=== PATIENT | male | born 1965 | race Caucasian/White ===

== ENCOUNTER 2024-03-11 17:27 | Inpatient (IN) | payer OTHER ==
--- NOTE | 2024-03-11 18:15 | ED ---
Chest Pain HPI - General Chief Complaint: Chest Pain Stated Complaint: Chest pain Time Seen by Provider: 03/11/24 17:44 Source: patient, EMS Mode of arrival: EMS Limitations: no limitations - History of Present Illness Initial Comments: This patient is a 58-year-old man with history of previous stents (2014 at [facility]) who is transferred here from [facility] to have evaluation for suspected NSTEMI. The patient states that he had gone to the hospital there because around noon he had worsening of the pain that he has experienced for the past 3 weeks. He indicates is substernal area. He states that it feels like a squeezing and again around noon today got much worse. He states that it was worse for about 40 minutes and now is barely there. He rates it a 1 out of 10 currently. The studies at the other hospital revealed a troponin of 1.56. The EKG was interpreted as not acutely ischemic. The remainder of the patient's workup unremarkable there and he was transferred here. The patient smokes approximately 1 pack cigarettes per day. MD Complaint: chest pain -: week(s) Onset: during rest Pain Location: substernal Pain Radiation: none Severity: severe Quality: tightness, aching Consistency: other (Improved) Improves With: nothing Worsens With: nothing Treatments Prior to Arrival: aspirin, oxygen, other - Related Data Home Medications Medication Instructions Recorded Confirmed ALPRAZolam [Xanax] 1 mg PO TID PRN 03/11/24 03/11/24 ARIPiprazole [Abilify] 10 mg PO DAILY 03/11/24 03/11/24 Albuterol Sulfate [Ventolin HFA] 2 puff INHALATION RT-Q4H PRN 03/11/24 03/11/24 Baclofen 10 mg PO TID 03/11/24 03/11/24 Cetirizine HCl [Zyrtec] 10 mg PO DAILY 03/11/24 03/11/24 Doxycycline Hyclate 100 mg PO BID 03/11/24 03/11/24 Escitalopram [Lexapro] 20 mg PO DAILY 03/11/24 03/11/24 Folic Acid 1 mg PO DAILY 03/11/24 03/11/24 Montelukast [Singulair] 10 mg PO DAILY 03/11/24 03/11/24 Tamsulosin [Flomax] 0.4 mg PO DAILY 03/11/24 03/11/24 Tiotropium [place] [Spiriva 1 puff INHALATION RT-DAILY 03/11/24 03/11/24 Handihaler] predniSONE See Taper PO DIRECTED 03/11/24 03/11/24 Previous Rx's Medication Instructions Recorded Aspirin 81 mg PO DAILY #90 tab 03/13/24 Clopidogrel [Plavix] 75 mg PO DAILY #90 tab 03/13/24 Nitroglycerin Sl Tabs [Nitrostat] 0.4 mg SUBLINGUAL Q5M PRN #100 tab 03/13/24 Pantoprazole [Protonix] 40 mg PO AC-BRKFST 30 Days #30 tab 03/13/24 Rosuvastatin [Crestor] 10 mg PO Q48H #90 tablet 03/13/24 Allergies Allergy/AdvReac Type Severity Reaction Status Date / Time No Known Allergies Allergy Verified 03/11/24 18:04 Review of Systems ROS Statement: Those systems with pertinent positive or pertinent negative responses have been documented in the HPI. ROS Other: All systems not noted in ROS Statement are negative. Constitutional: Denies: fever, chills, weakness Respiratory: Denies: cough, dyspnea, hemoptysis Cardiovascular: Reports: chest pain. Denies: palpitations, orthopnea, edema, syncope Gastrointestinal: Denies: abdominal pain, nausea, vomiting, diarrhea Genitourinary: Denies: dysuria, hematuria Musculoskeletal: Denies: back pain Skin: Denies: rash Neurological: Denies: headache, weakness, numbness EKG Findings - EKG Comments: EKG Findings:: Minimal ST elevations inferiorly the machine is reading as early repolarization. - EKG Results: EKG: interpreted by ERMD, sinus rhythm, normal axis EKG shows: bradycardia (Rate 47 bpm) - CO, Pacemaker, Normal: Myocardial infarction: anterior CO (old age or indeterminate) Past Medical History Past Medical History: Chest Pain / Angina History of Any Multi-Drug Resistant Organisms: None Reported Past Surgical History: Heart Catheterization With Stent Past Psychological History: Anxiety Smoking Status: Current every day smoker Past Alcohol Use History: None Reported Past Drug Use History: Marijuana General Exam Limitations: no limitations General appearance: alert, in no apparent distress Head exam: Present: atraumatic, normocephalic Eye exam: Present: normal appearance. Absent: scleral icterus, conjunctival injection ENT exam: Present: normal oropharynx Neck exam: Present: normal inspection Respiratory exam: Present: normal lung sounds bilaterally. Absent: respiratory distress, wheezes, rales, rhonchi, stridor, accessory muscle use Cardiovascular Exam: Present: regular rate, normal rhythm, normal heart sounds. Absent: systolic murmur, diastolic murmur, rubs, gallop GI/Abdominal exam: Present: soft. Absent: distended, tenderness, guarding, rebo und, rigid, mass Extremities exam: Present: normal inspection, normal capillary refill. Absent: pedal edema, calf tenderness Back exam: Present: normal inspection. Absent: CVA tenderness (R), CVA tenderness (L) Neurological exam: Present: alert Skin exam: Present: warm, dry, intact, normal color. Absent: rash Course Vital Signs 03/11/24 03/11/24 03/11/24 17:40 19:30 21:00 Temperature 97.7 F 97.4 F L Pulse Rate 71 60 50 L Respiratory 18 18 17 Rate Blood Pressure 107/71 105/74 122/75 O2 Sat by Pulse 97 98 95 Oximetry 03/11/24 03/12/24 03/12/24 23:00 04:00 06:00 Temperature Pulse Rate 50 L 50 L 47 L Respiratory 19 17 18 Rate Blood Pressure 127/80 116/74 128/71 O2 Sat by Pulse 96 96 95 Oximetry 03/12/24 08:01 Temperature 97.5 F L Pulse Rate 75 Respiratory 18 Rate Blood Pressure 133/95 O2 Sat by Pulse 99 Oximetry - Reevaluation(s) Reevaluation #1: 03/11/24 18:18 Case discussed with solderer electronic, will repeat ECG and reevaluate patient's symptoms after medication. Reevaluation #2: 03/11/24 20:19 Cardiology updated with patient's recent labs and the fact that he is now symptom-free. Will continue to monitor and arrange admission. Chest Pain MDM - MDM Was pt. sent in by a medical professional or institution (, PA, SENIOR PRODUCT CONSULTANT, urgent care, hospital, or care home...) When possible be specific @ -Patient is sent as a transfer from the outside hospital Did you speak to anyone other than the patient for history (EMS, parent, family, police, friend...)? What history was obtained from this source @ -[No] Did you review nursing and triage notes (agree or disagree)? Why? @ -[I reviewed and agree with nursing and triage notes] Were old charts reviewed (outside hosp., previous admission, EMS record, old EKG, old radiological studies, urgent care reports/EKG's, care home records)? Report findings @ -[The transfer records were reviewed] Differential Diagnosis (chest pain, altered mental status, abdominal pain women, abdominal pain men, vaginal bleeding, weakness, fever, dyspnea, syncope, headache, dizziness, GI bleed, back pain, seizure, CVA, palpatations, mental health, musculoskeletal)? @ -[Differential Chest Pain: Stable Angina, Unstable Angina, STEMI, NSTEMI Aortic Dissection, Pneumothorax, Musculoskeletal, Esophageal Spasm GERD, Cholecystitis, Pancreatitis, Zoster, this is not meant to be an all-inclusive list. EKG interpreted by me (3pts min.). @ -[I interpreted as above] X-rays interpreted by me (1pt min.). @ -[None done] CT interpreted by me (1pt min.). @ -[None done] U/S interpreted by me (1pt. min.). @ -[None done] What testing was considered but not performed or refused? (CT, X-rays, U/S, labs)? Why? @ -[None] What meds were considered but not given or refused? Why? @ -[None] Did you discuss the management of the patient with other professionals (professionals i.e. , PA, SENIOR PRODUCT CONSULTANT, lab, RT, psych nurse, social worker psychiatric, family lawyer, teacher, life science technical officer, case managers)? Give summary @ -[Case was discussed with the admitting physician and also with cardiology on-call and cardiology was updated with lab and clinical course. Treatment recommendations are incorporated Was smoking cessation discussed for >3mins.? @ -Yes Was critical care preformed (if so, how long)? @ -[Yes, 30 minutes Were there social determinants of health that impacted care today? How? (Homelessness, low income, unemployed, alcoholism, drug addiction, transportation, low edu. Level, literacy, decrease access to med. care, assisted, rehab)? @ -[No] Was there de-escalation of care discussed even if they declined (Discuss DNR or withdrawal of care, Hospice)? DNR status @ -[No] What co-morbidities impacted this encounter? (DM, HTN, Smoking, COPD, CAD, Cancer, CVA, ARF, Chemo, Hep., AIDS, mental health diagnosis, sleep apnea, morbid obesity)? @ -[Previous coronary artery disease, smoking, hyperlipidemia Was patient admitted / discharged? Hospital course, mention meds given and route, prescriptions, significant lab abnormalities, going to OR and other pertinent info. @ -[Patient arrives here as transfer from the outside hospital. He is maintained on heparin drip. He has repeat labs showing that there is an elevation of troponin from his previous lab value. I discussed the results with admitting physician and with cardiology on-call and treatment recommendations incorporated. They plan to take the patient to [facility] in the a.m. as he currently symptom-free. Undiagnosed new problem with uncertain prognosis? @ -[No] Drug Therapy requiring intensive monitoring for toxicity (Heparin, Nitro, Insulin, Cardizem)? @ -[Heparin Were any procedures done? @ -[No] Diagnosis/symptom? @ -[Acute coronary syndrome Probable NSTEMI Acute, or Chronic, or Acute on Chronic? @ -[Acute Uncomplicated (without systemic symptoms) or Complicated (systemic symptoms)? @ -[Uncomplicated Side effects of treatment? @ -[No] Exacerbation, Progression, or Severe Exacerbation? @ -[No] Poses a threat to life or bodily function? How? (Chest pain, USA, CO, pneumonia, PE, COPD, DKA, ARF, appy, cholecystitis, CVA, Diverticulitis, Homicidal, Suicidal, threat to staff... and all critical care pts) @ -[Yes Disposition Clinical Impression: Chest pain, Acute non-ST elevation myocardial infarction (NSTEMI) Disposition: ADMITTED IP TO THIS HOSP Condition: Stable Is patient prescribed a controlled substance at d/c from ED?: No
[2024-03-11] MEDS: SODIUM CHLORIDE 0.9% 500 ML 500 ML IV STA (18:19)
[2024-03-11] MEDS: SODIUM CHLORIDE 0.9% 1,000 ML IV STA (18:22)
[2024-03-11 18:25] LABS: Basophils % (A) 0 %; Eosinophils # (A) 0.1 k/uL (0-0.7); Eosinophils % (A) 1 %; HCT 43.9 % (39.0-53.0); HGB 14.1 gm/dL (13.0-17.5); Lymphocytes % (A) 8 %; MCH 31.7 pg (25.0-35.0); Mean Platelet Volume 7.7; Monocytes # (A) 0.2 k/uL (0-1.0); Monocytes % (A) 1 %; Neutrophils # (A) 11.7 k/uL (1.3-7.7); Neutrophils % (A) 90 %; Platelet Count 229 k/uL (150-450); RBC 4.44 m/uL (4.30-5.90); RDW 13.5 % (11.5-15.5)
[2024-03-11] MEDS: NITROGLYCERIN SL TABS 0.4 MG TAB SUBLINGUAL STA (18:25)
[2024-03-11 18:38] LABS: ALT 18 U/L (4-49); AST 32 U/L (17-59); African American GFR (CKD) >90 (>60 ml/min/1.73 sqM); Albumin 3.5 g/dL (3.5-5.0); Alkaline Phosphatase 91 U/L (38-126); Anion Gap 6 mmol/L; Blood Urea Nitrogen 12 mg/dL (9-20); Calcium 8.8 mg/dL (8.4-10.2); Carbon Dioxide 18 mmol/L (22-30); Chloride 112 mmol/L (98-107); Glucose 114 mg/dL (74-99); Magnesium 1.9 mg/dL (1.6-2.3); Non-African American GFR(CKD) >90 (>60 ml/min/1.73 sqM); Potassium 4.4 mmol/L (3.5-5.1); Sodium 136 mmol/L (137-145); Total Bilirubin 0.4 mg/dL (0.2-1.3); Total Protein 6.7 g/dL (6.3-8.2)
[2024-03-11 18:51] LABS: Prothrombin Time 11.3 sec (10.0-12.5)
[2024-03-11] MEDS: HEPARIN SOD,PORK IN 0.45% NACL 25,000 UNIT in 0.45% NACL 1 250ML.BAG IV SCH (18:59)
[2024-03-11 19:01] LABS: Partial Thromboplastin Time 176.9 sec (22.0-30.0)
[2024-03-11] MEDS ORDERED: NITROGLYCERIN SL TABS 0.4 MG TAB SUBLINGUAL PRN (20:15)
[2024-03-11] MEDS ORDERED: ALBUTEROL HFA INHALER INHALATION PRN (20:18)
[2024-03-11] MEDS: CLOPIDOGREL 75 MG TAB PO STA (23:50)
--- NOTE | 2024-03-11 23:58 | P.HPIM ---
History of Present Illness H&P Date: 03/11/24 Chief Complaint: Chest pain 58-year-old male with coronary artery disease Patient was transferred to our facility from [facility] for NSTEMI, he presented there having couple episodes of chest pain started this morning when he was getting his 4 wheelers ready suddenly started experiencing central chest pain described as squeezing in nature 10 out of 10 in severity associated with feeling nauseous vomited once with shortness of breath denies any profuse sweating denies any dizziness lightheadedness or palpitations he took some Xanax as he thought he might be having some anxiety first episode lasted for about 10 minutes resolved but then he had another episode that lasted over an hour for which she decided to go to the hospital for evaluation patient does recall history of coronary artery disease with stents back in 2013 or 2014 denies any recent upper respiratory infection symptoms denies any fevers chills coughing denies any recent travel hospital stay or history of blood clots At time of my evaluation patient was laying down in bed comfortably sleeping denies any active chest pain currently on heparin drip Otherwise denies any fevers chills denies any upper respiratory infection symptoms denies any abdominal pain denies any changes in bowel or urinary habit denies any GI bleeding Patient admits to tobacco smoking denies any illicit drugs or heavy alcohol review of systems Pertinent positives as noted in HPI. All other systems were reviewed and are negative on exam Constitutional: No acute distress, conversant, pleasant Eyes: Anicteric sclerae, moist conjunctiva, Pupils equal round reactive to light ENMT: NC/AT Oropharynx clear, no erythema, or exudates Neck: Supple, no masses, or JVD No carotid bruits No thyromegaly Lungs: Clear to auscultation Clear to percussion Normal respiratory effort, no accessory muscle use Cardiovascular: Heart regular in rate and rhythm, No murmurs, gallops, or rubs No peripheral edema Abdominal: Soft Nontender, no guarding, rebound or rigidity Abdomen moving with respiration Normoactive bowel sounds Extremities: No digital cyanosis No clubbing Pedal pulses intact and symmetrical Radial pulses intact and symmetrical No calf tenderness Psychiatric: Alert and oriented to person, place and time Appropriate affect fair judgement Neuro Muscles Strength 5/5 in all 4 extremities Sensation to light touch grossly present throughout Cranial nerves II-XII grossly intact Past Medical History Past Medical History: Chest Pain / Angina History of Any Multi-Drug Resistant Organisms: None Reported Past Surgical History: Heart Catheterization With Stent Past Psychological History: Anxiety Smoking Status: Current every day smoker Past Alcohol Use History: None Reported Past Drug Use History: Marijuana Medications and Allergies Home Medications Medication Instructions Recorded Confirmed Type ALPRAZolam [Xanax] 1 mg PO TID PRN 03/11/24 03/11/24 History ARIPiprazole [Abilify] 10 mg PO DAILY 03/11/24 03/11/24 History Albuterol Sulfate [Ventolin HFA] 2 puff INHALATION RT-Q4H PRN 03/11/24 03/11/24 History Baclofen 10 mg PO TID 03/11/24 03/11/24 History Cetirizine HCl [Zyrtec] 10 mg PO DAILY 03/11/24 03/11/24 History Doxycycline Hyclate 100 mg PO BID 03/11/24 03/11/24 History Escitalopram [Lexapro] 20 mg PO DAILY 03/11/24 03/11/24 History Folic Acid 1 mg PO DAILY 03/11/24 03/11/24 History Montelukast [Singulair] 10 mg PO DAILY 03/11/24 03/11/24 History Tamsulosin [Flomax] 0.4 mg PO DAILY 03/11/24 03/11/24 History Tiotropium [place] [Spiriva] 1 puff INHALATION RT-DAILY 03/11/24 03/11/24 History predniSONE See Taper PO DIRECTED 03/11/24 03/11/24 History Allergies Allergy/AdvReac Type Severity Reaction Status Date / Time No Known Allergies Allergy Verified 03/11/24 18:04 Physical Exam Vitals: Vital Signs Temp Pulse Resp BP Pulse Ox 03/11/24 19:30 97.4 F L 60 18 105/74 98 03/11/24 17:40 97.7 F 71 18 107/71 97 Intake and Output 03/11/24 03/11/24 03/11/24 06:59 14:59 22:59 Intake Total 0.29 Balance 0.29 Intake: Intake, IV Titration 0.29 Amount Heparin Sod,Pork in 0.45% 0.29 NaCl 25,000 unit In 0.45 % NaCl 1 250ml.bag @ 12 UNITS/KG/HR 8.709 mls/hr IV .Q24H MAHAMED Rx#: [id number] Other: Weight 72.575 kg Results CBC & Chem 7: 03/11/24 18:11 03/11/24 18:11 Labs: Abnormal Lab Results - Last 24 Hours (Table) 03/11/24 03/11/24 03/11/24 Range/Units 18:11 18:11 18:11 WBC 13.0 H (3.8-10.6) k/uL Neutrophils # 11.7 H (1.3-7.7) k/uL APTT 176.9 H* (22.0-30.0) sec Sodium 136 L (137-145) mmol/L Chloride 112 H (98-107) mmol/L Carbon Dioxide 18 L (22-30) mmol/L Glucose 114 H (74-99) mg/dL Troponin I (0.000-0.034) ng/mL 03/11/24 03/11/24 Range/Units 18:11 19:56 WBC (3.8-10.6) k/uL Neutrophils # (1.3-7.7) k/uL APTT 32.3 H (22.0-30.0) sec Sodium (137-145) mmol/L Chloride (98-107) mmol/L Carbon Dioxide (22-30) mmol/L Glucose (74-99) mg/dL Troponin I 2.450 H* (0.000-0.034) ng/mL Assessment and Plan Assessment: 58-year-old male with coronary artery disease coming in for sudden onset chest pain multiple episodes he was evaluated at [facility] found to have elevated troponins was transferred to our facility for further care I discussed case with ED doctor and accepted the admission for NSTEMI with anticipated length of stay more than 2 midnights NSTEMI Patient continues to be on heparin drip per ACS protocol, dosing by pharmacy Continue with aspirin 325 mg p.o. daily Loading dose of Plavix 300 mg p.o. then continue with 75 mg p.o. daily Cardiac monitoring EKG showed ST changes in precordial leads suggestive of early repolarization Troponins elevated 2.4 continue to trend Continue with statin Cardiology consult White count elevated 13 no evidence of acute infectious process most likely reactive secondary to above Renal function unremarkable sodium 136 potassium 4.4 BUN 12 creatinine 0.8 Hemoglobin unremarkable 14 Full code DVT prophylaxis on heparin drip per ACS protocol GI prophylaxis Protonix 40 mg p.o. daily
[2024-03-12] MEDS ORDERED: HEPARIN SODIUM,PORCINE (1 ML) 2,500 UNIT in SODIUM CHLORIDE 0.9% 250 ML IRRIGATION PRN (07:00)
[2024-03-12] MEDS ORDERED: HEPARIN SODIUM,PORCINE 10,000 UNIT in SODIUM CHLORIDE 0.9% 1,000 ML IRRIGATION PRN (07:00)
[2024-03-12] MEDS ORDERED: ALPRAZolam 0.25 MG TAB PO PRN (08:19)
[2024-03-12] MEDS ORDERED: ASPIRIN 325 MG TAB PO STA (08:19)
[2024-03-12] MEDS ORDERED: ALPRAZolam 0.5 MG TAB PO PRN (08:19)
--- NOTE | 2024-03-12 08:19 | P.CRDCN ---
History of Present Illness Consult date: 03/12/24 Reason for Consult (text): NSTEMI History of present illness: History of present illness: This is a 58-year-old male with past medical history of coronary artery disease with previous stents placed in 2013 in [place]. Patient was transferred from [facility] for suspected non-ST elevated myocardial infarction. Patient has had chest pain ongoing for the past 3 weeks in the substernal area, squeezing quality. Troponin at [facility] was 1.56. He denies fever, chills. No shortness of breath. He has had one episode with nausea. Patient received NTG SL but at that time very inimal pain and not sure if this helped. He is a smoker of 1 pack/day. In 2013, patient had CO poisoning and found to have abnormal EKG and had stress test and then cath with stents. He did not experience chest pain at the time of his previous stents. Patient has been started on a heparin drip, aspirin, Plavix and is seen today in the emergency center waiting for bed on the cardiac stepdown unit. EKG sinus rhythm with abnormal ST or possible early repolarization WBC 13, hemoglobin 14.1. Sodium 136, potassium 4.4, chloride 112, CO2 18, BUN 12 and creatinine 0.81. Troponins 2.45, 3.21, 3.35. Home cardiac medications: none Review Of Systems: At the time of my exam: CONSTITUTIONAL: Denies fever or chills. HEENT: Denies blurred vision, vision changes, or eye pain. Denies hemoptysis CARDIOVASCULAR: Denies chest pain. Denies orthopnea. Denies PND. Denies palpitations RESPIRATORY: Denies shortness of breath. GASTROINTESTINAL: Denies abdominal pain. Denies nausea or vomiting. HEMATOLOGIC: Denies bleeding disorders. GENITOURINARY: Denies any blood in urine. SKIN: Denies pruitis. Denies rash. Physical examination: Gen: This is a 58-year-old male in no acute distress VS: reviewed, blood pressure 128/71, heart rate 47, pulse ox 95% on room air. HEENT: Head is atraumatic, normocephalic. Pupils equal, round. Sclerae is anicteric. NECK: Supple. No JVD. LUNGS: Clear to auscultation. No wheezes or rhonchi. No intercostal retractions . HEART: Regular rate and rhythm. No murmur. ABDOMEN: Soft No tenderness. EXTREMITIES: No pedal edema. No calf tenderness. NEUROLOGICAL: Patient is awake, alert and oriented x3. Assessment: Non-ST elevated myocardial infarction History of coronary artery disease with previous stents, details unknown Tobacco use and dependence Plan: Continue current cardiac medications: Aspirin changed to 81 mg daily, atorvastatin 40 mg daily, Plavix 75 mg daily Continue heparin drip Patient is not on beta-mariza due to bradycardia Obtain 2-D echocardiogram and Doppler study to assess cardiac structure and function Obtain previous cardiac records from [facility] Smoking cessation discussed with the patient and referred to the [place] Quitline Patient will be scheduled for cardiac catheterization today with Dr. Saunders Further recommendations to follow based upon clinical course Thank you kindly for this consultation. Nurse practitioner note has been reviewed, I agree with documented findings and plan of care. Patient was seen and examined. Past Medical History Past Medical History: Chest Pain / Angina History of Any Multi-Drug Resistant Organisms: None Reported Past Surgical History: Heart Catheterization With Stent Past Psychological History: Anxiety Smoking Status: Current every day smoker Past Alcohol Use History: None Reported Past Drug Use History: Marijuana Medications and Allergies Home Medications Medication Instructions Recorded Confirmed Type ALPRAZolam [Xanax] 1 mg PO TID PRN 03/11/24 03/11/24 History ARIPiprazole [Abilify] 10 mg PO DAILY 03/11/24 03/11/24 History Albuterol Sulfate [Ventolin HFA] 2 puff INHALATION RT-Q4H PRN 03/11/24 03/11/24 History Baclofen 10 mg PO TID 03/11/24 03/11/24 History Cetirizine HCl [Zyrtec] 10 mg PO DAILY 03/11/24 03/11/24 History Doxycycline Hyclate 100 mg PO BID 03/11/24 03/11/24 History Escitalopram [Lexapro] 20 mg PO DAILY 03/11/24 03/11/24 History Folic Acid 1 mg PO DAILY 03/11/24 03/11/24 History Montelukast [Singulair] 10 mg PO DAILY 03/11/24 03/11/24 History Tamsulosin [Flomax] 0.4 mg PO DAILY 03/11/24 03/11/24 History Tiotropium [place] [Spiriva] 1 puff INHALATION RT-DAILY 03/11/24 03/11/24 History predniSONE See Taper PO DIRECTED 03/11/24 03/11/24 History Allergies Allergy/AdvReac Type Severity Reaction Status Date / Time No Known Allergies Allergy Verified 03/11/24 18:04 Physical Exam Vitals: Vital Signs Temp Pulse Resp BP Pulse Ox 03/12/24 06:00 47 L 18 128/71 95 03/12/24 04:00 50 L 17 116/74 96 03/11/24 23:00 50 L 19 127/80 96 03/11/24 21:00 50 L 17 122/75 95 03/11/24 19:30 97.4 F L 60 18 105/74 98 03/11/24 17:40 97.7 F 71 18 107/71 97 Intake and Output 03/11/24 03/12/24 03/12/24 22:59 06:59 14:59 Intake Total 0.29 Balance 0.29 Intake: Intake, IV Titration 0.29 Amount Heparin Sod,Pork in 0.45% 0.29 NaCl 25,000 unit In 0.45 % NaCl 1 250ml.bag @ 12 UNITS/KG/HR 8.709 mls/hr IV .Q24H [facility] Rx#: [id number] Other: Weight 72.575 kg Results 03/11/24 18:11 03/11/24 18:11 Cardiac Enzymes 03/11/24 03/11/24 03/11/24 Range/Units 18:11 18:11 21:06 AST 32 (17-59) U/L Troponin I 2.450 H* 3.210 H* (0.000-0.034) ng/mL 03/11/24 Range/Units 23:39 AST (17-59) U/L Troponin I 3.350 H* (0.000-0.034) ng/mL Coagulation 03/11/24 03/11/24 Range/Units 18:11 19:56 PT 11.3 (10.0-12.5) sec APTT 176.9 H* 32.3 H (22.0-30.0) sec CBC 03/11/24 Range/Units 18:11 WBC 13.0 H (3.8-10.6) k/uL RBC 4.44 (4.30-5.90) m/uL Hgb 14.1 (13.0-17.5) gm/dL Hct 43.9 (39.0-53.0) % Plt Count 229 (150-450) k/uL Comprehensive Metabolic Panel 03/11/24 Range/Units 18:11 Sodium 136 L (137-145) mmol/L Potassium 4.4 (3.5-5.1) mmol/L Chloride 112 H (98-107) mmol/L Carbon Dioxide 18 L (22-30) mmol/L BUN 12 (9-20) mg/dL Creatinine 0.81 (0.66-1.25) mg/dL Glucose 114 H (74-99) mg/dL Calcium 8.8 (8.4-10.2) mg/dL AST 32 (17-59) U/L ALT 18 (4-49) U/L Alkaline Phosphatase 91 (38-126) U/L Total Protein 6.7 (6.3-8.2) g/dL Albumin 3.5 (3.5-5.0) g/dL Current Medications Generic Name Dose Route Start Last Admin Trade Name Freq PRN Reason Stop Dose Admin Albuterol Sulfate 2 puff 03/11/24 20:18 Albuterol Hfa Inhaler INHALATION RT-Q4H PRN Shortness Of Breath Alprazolam 1 mg 03/11/24 23:59 Alprazolam 1 Mg Tab PO TID PRN Anxiety Aspirin 325 mg 03/12/24 09:00 Aspirin 325 Mg Tab PO DAILY [facility] Atorvastatin Calcium 40 mg 03/12/24 09:00 Atorvastatin 40 Mg Tab PO DAILY [facility] Clopidogrel Bisulfate 75 mg 03/12/24 09:00 Clopidogrel 75 Mg Tab PO DAILY [facility] Escitalopram Oxalate 20 mg 03/12/24 09:00 Escitalopram 20 Mg Tab PO DAILY [facility] Heparin Sodium (Porcine) 0 unit 03/11/24 22:40 Heparin Sodium 1,000 Un/Ml (10ml Vl) IV PER PROTOCOL PRN Low PTT Protocol Heparin Sodium/Sodium Chloride 250 mls @ 8.709 mls/hr 03/11/24 18:00 03/11/24 22:42 25,000 unit/ Sodium Chloride IV 12 units/kg/hr .Q24H [facility] 8.709 mls/hr Titration Protocol 12 UNITS/KG/HR Sodium Chloride 1,000 mls @ 75 mls/hr 03/11/24 18:10 03/11/24 18:22 Saline 0.9% IV 03/12/24 07:29 75 mls/hr .[id number] STA Administration Montelukast Sodium 10 mg 03/12/24 09:00 Montelukast 10 Mg Tab PO DAILY [facility] Nitroglycerin 0.4 mg 03/11/24 20:15 Nitroglycerin Sl Tabs 0.4 Mg Tab SUBLINGUAL Q5M PRN Chest Pain Non-Formulary Medication 1 puff 03/12/24 08:00 Tiotropium [place] [Spiriva Handihaler] INHALATION RT-DAILY [facility] Pantoprazole Sodium 40 mg 03/12/24 07:30 Pantoprazole 40 Mg Tablet PO AC-BRKFST [facility] Tamsulosin HCl 0.4 mg 03/12/24 09:00 Tamsulosin 0.4 Mg Cap.Er.24h PO DAILY [facility] Intake and Output 03/11/24 03/12/24 03/12/24 22:59 06:59 14:59 Intake Total 0.29 Balance 0.29 Intake: Intake, IV Titration 0.29 Amount Heparin Sod,Pork in 0.45% 0.29 NaCl 25,000 unit In 0.45 % NaCl 1 250ml.bag @ 12 UNITS/KG/HR 8.709 mls/hr IV .Q24H [facility] Rx#: [id number] Other: Weight 72.575 kg 03/11/24 18:11 03/11/24 18:11
[2024-03-12] MEDS: ATORVASTATIN 40 MG TAB PO SCH (08:21)
[2024-03-12] MEDS: TAMSULOSIN 0.4 MG CAP.ER.24H PO SCH (08:21)
[2024-03-12] MEDS: MONTELUKAST 10 MG TAB PO SCH (08:21)
[2024-03-12] MEDS: CLOPIDOGREL 75 MG TAB PO SCH (08:21)
[2024-03-12] MEDS: ASPIRIN 81 MG PO SCH (08:22)
[2024-03-12] MEDS: ESCITALOPRAM 20 MG TAB PO SCH (08:22)
[2024-03-12] MEDS: PANTOPRAZOLE 40 MG TABLET PO SCH (08:25)
[2024-03-12] MEDS: NON FORMULARY DRUG (Tiotropium Bromide [Spiriva Handihaler] 18 MCG Cap.W.Dev) INHALATION SCH (08:26)
[2024-03-12] MEDS: ALPRAZolam 1 MG TAB PO PRN (08:29)
[2024-03-12] MEDS: ASPIRIN 81 MG PO STA (08:29)
[2024-03-12] MEDS: ATORVASTATIN 80 MG TAB PO STA (08:30)
[2024-03-12] MEDS ORDERED: ASPIRIN 325 MG TAB PO SCH (09:00)
[2024-03-12] MEDS: HEPARIN SODIUM 1,000 UN/ML (10ML VL) IV PRN (10:34)
[2024-03-12] MEDS ORDERED: fentaNYL (PF) 50 MCG/ML 2 ML AMP ONE (10:36)
[2024-03-12] MEDS ORDERED: LIDOCAINE 1% INJ 10MG/ML (20 ML MDV) ONE (10:36)
[2024-03-12] MEDS ORDERED: VERAPAMIL 2.5 MG/ML 2 ML AMP ONE (10:36)
[2024-03-12] MEDS ORDERED: HEPARIN SODIUM 1,000 UN/ML (10ML VL) ONE (10:36)
[2024-03-12] MEDS: SODIUM CHLORIDE 0.9% 1,000 ML IV ONE (10:50)
[2024-03-12] MEDS: MIDAZOLAM 2 MG/2 ML VIAL IVP ONE (11:05)
[2024-03-12] MEDS: fentaNYL (PF) 50 MCG/1 ML VIAL IVP ONE (11:06)
[2024-03-12] MEDS: LIDOCAINE 1% INJ 10MG/ML (20 ML MDV) SQ ONE (11:07)
[2024-03-12] MEDS: VERAPAMIL SYRINGE (5 MG/10 ML) INTRAARTER ONE (11:08)
[2024-03-12] MEDS: HEPARIN SODIUM 1,000 UN/ML (10ML VL) IVP ONE ×2 (11:12→11:13)
[2024-03-12] MEDS ORDERED: CLOPIDOGREL 75 MG TAB ONE (11:16)
[2024-03-12] MEDS: CLOPIDOGREL 75 MG TAB PO ONE (11:23)
[2024-03-12] MEDS: NITROGLYCERIN 1000MCG/10ML SYRINGE INTRACORON ONE (11:26)
[2024-03-12] MEDS: IOPAMIDOL-370 100ML BTL INJ ONE ×2 (11:33→11:39)
--- NOTE | 2024-03-12 11:44 | P.PRCINT ---
Percutaneous Coronary Int. - Percutaneous Coronary Intervention Percutaneous Coronary Intervention: PROCEDURES PERFORMED: Left heart catheterization, bilateral coronary angiography, ultrasound guided arterial access, PCI proximal diagonal 1 with a 2.25 x 12mm Xience RENARD, post dilated with a 2.25mm NC INDICATION: NSTEMI CONSENT:I have discussed the risks, benefits and alternative therapies for the above-mentioned procedure and for both sedation/analgesia as well as necessary blood product administration, if indicated, as they pertain to this patient. The patient has indicated understanding and acceptance of the risks and procedures discussed. PROCEDURE: After the risks, benefits and alternatives of the above mentioned procedure explained in detail with the patient, informed consent was obtained. Patient was taken to the catheterization lab and prepped and draped in usual fashion. Ultrasound guidance was used to assess for arterial access. 1% lidocaine was used to anesthetize the right radial artery. A 6-Mozambican sheath was placed in the right radial artery using modified Seldinger technique and ult rasound guidance. Left coronary angiography was performed with a 5-Mozambican JL 3.5 catheter and right coronary angiography was performed with a 5-Mozambican FR5 catheter in various views. A 6-Mozambican AR2 catheter was inserted into the left ventricle and pressure measurements were obtained. The right radial sheath was removed and a TR band was placed with hemostasis achieved. The patient tolerated the procedure well. Patient was transported back to the post catheterization holding area in stable condition. Conscious Sedation: Patient was monitored under the direct supervision of myself for conscious sedation using Versed and fentanyl for a total duration of 27 minutes HEMODYNAMICS: Ao: 152/75 LV: 145/5, LVEDP 18 SELECTIVE CORONARY ARTERIOGRAPHY: LEFT MAIN: The left main is a large caliber vessel which bifurcates into the LAD and circumflex. There is mild 10% distal left main stenosis. LEFT ANTERIOR DESCENDING CORONARY ARTERY: LAD is a large caliber vessel which wraps around to the apex. There are diffuse mild luminal irregularities including proximal LAD 30%, mid LAD 30% stenosis. Diagonal 1 is small to moderate caliber with a proximal 99% stenosis. LEFT CIRCUMFLEX CORONARY ARTERY: Left circumflex is a moderate caliber vessel with 20-30% stenosis. there is a stent which is patent. RIGHT CORONARY ARTERY: The right coronary artery is a large caliber vessel which gives off a PDA and PLV branch and is the dominant vessel. There is a mid 50% RCA stenosis. FINAL IMPRESSION: 1. CAD as described above with 30% LAD stenosis, 99% proximal diagonal 1 stenosis, mid RCA 50% stenosis 2. Status post PCI proximal diagonal 1 was 2.25 x 12 mm Xience RENARD 3. Mildly elevated left sided filling pressures PLAN: 1. Aggressive risk factor modification per most recent ACC/AHA guidelines. 2. continue dual antiplatelets with aspirin and Plavix for 12 months. 3. No beta blockers given bradycardia 4. Patient unwilling to take statin despite numerous explanations of her reason for statin 5. Discussed tobacco cessation in detail. Patient unwilling. Gave the patient referral to the [place] quit line.
[2024-03-12] MEDS ORDERED: RX INFO: IV CONTRAST WAS GIVEN 1 EACH MISC MISCELLANE PRN (11:47)
[2024-03-12] MEDS ORDERED: MAG HYDROX/AL HYDROX/SIMETH 30 ML CUP PO PRN (11:47)
[2024-03-12] MEDS ORDERED: ZOLPIDEM 5 MG TAB PO PRN (11:47)
[2024-03-12] MEDS ORDERED: ATROPINE SULFATE 0.1 MG/ML 10ML SYRINGE IV PRN (11:47)
[2024-03-12 12:54] LABS: Chol/HDL Ratio 3.88 Ratio; LDL Cholesterol,Calculated 100.3 mg/dL (0.0-131.0)
--- NOTE | 2024-03-12 13:49 | P.PN ---
Subjective Progress Note Date: 03/12/24 Hospital course: Patient is a 58-year-old male with a past medical history of CAD with stent and COPD with continued nicotine dependence. He was transferred to our facility overnight on 03/11/2024 from [facility] for NSTEMI. Patient initially presented to their facility with squeezing central chest pain. Patient was given aspirin and workup there revealed elevated troponin documented at 1.56. Patient was started on heparin infusion for treatment of NSTEMI and transferred to our emergency department. Vital signs upon arrival to our facility show b lood pressure 107/71, heart rate 71, respiratory rate 18, temp 97.7 F, and SpO2 of 97% on room air. EKG upon arrival showing sinus bradycardia at [address] elevation in leads II, III, and aVF and T wave inversion in aVL. ER physician discussed EKG findings with on-call slide fasteners inspector. Heparin infusion was continued and patient was given Plavix and sublingual nitro resulting in resolution of chest pain/squeezing sensation. Repeat EKG was completed again showing sinus bradycardia with no noted ST elevation and T wave inversion in aVL. Political Science Research Assistant was again updated by ED physician on repeat labs and resolution of chest pain and new EKG findings after administration of medication recommending continuation of monitoring. Repeat labs at her facility were also completed. CBC showing leukocytosis with WBC count of 13.0. BMP showing sodium 136, chloride 112, bicarb 18, and anion gap of 6. Troponin 2.450. Patient admitted under our services with consultation to cardiology. Troponins trended resulting at 2.450, 3.210, and 3.350. Physical exam: Patient seen and fully evaluated at bedside this morning. He reports continued resolution of previous chest pain/squeezing sensation. He remains on heparin infusion. He denies having any headache, lightheadedness, dizziness, palpitations, shortness of breath, Vital signs reviewed and stable. General: Nontoxic, no distress and appears stated age. Derm: Skin warm and dry, normal coloration for ethnicity. Head: Atraumatic, normocephalic and symmetric. Eyes: EOMs intact, no lid lag, and anicteric sclera Mouth: no lip lesions, mucus membranes moist Cardiovascular: regular rate and rhythm with normal S1S2, no murmur, positive posterior tibial pulses bilaterally, and cap refill < 2 seconds. Lungs: Respirations even, regular, and unlabored on room air. Lungs CTA bilaterally, no rhonchi, no rales, no wheezing, and no accessory muscle usage. Abdominal: soft, nontender to palpation, no guarding, no appreciable organomegaly Ext: ROM intact. No gross muscle atrophy, no edema, no contractures Neuro: Speech clear, face symmetrical and CN II-XII grossly intact with no noted focal neuro deficits Psych: Alert and oriented to person, place, time, and situation. Appropriate and pleasant affect. Assessment and Plan of Care: NSTEMI History of CAD with previous stenting COPD, not in acute exacerbation Nicotine dependence -Cardiology evaluated and planning to take patient for cardiac cath later today -Continue heparin infusion for treatment of NSTEMI, currently PTT subtherapeutic at 33.1. Continue to monitor PTT every 6 hours for goal therapeutic range of 44 to 79 ms. -Telemetry monitoring -NPO pending completion of cardiac cath and then may advance to cardiac diet -Continue cardiac medication regimen with aspirin 81 mg daily and atorvastatin 40 mg daily, -Lipid profile with a.m. labs. -Echocardiogram -Patient was counseled on smoking cessation and offered a nicotine patch but declined at this time. -Continue Spiriva, Singulair, and as needed Ventolin inhaler for shortness of breath and/or wheezing. BPH Continue Flomax 0.4 mg daily. Data and imaging reviewed: Troponins trended resulting at 2.450, 3.210, and 3.350. Vital signs reviewed and stable. Blood pressure 133/95, heart rate 75, respiratory rate 18, temp 97.5 F, and SpO2 of 99% on room air. PTT subtherapeutic at 33.1 increased heparin infusion from 12 units/kg/h up to 15 units/kg/h and attempts to obtain goal therapeutic range of 44 to 79 ms. CODE STATUS: Full code DVT prophylaxis: Heparin infusion Anticipated discharge date: Clinical course to determine Anticipated discharge place: Home Patient was seen independently by Nurse Pracitioner. This document was prepared using [employer] dictation software. Please allow for errors in transfer agent, while rare they do occur. I reviewed the documentation as provided by the KIM above, who is the original author of this note. I agree with the documented assessment and plan, with the following changes: none Objective - Vital Signs Vital signs: Vital Signs Temp 97.5 F L 03/12/24 08:01 Pulse 75 03/12/24 08:01 Resp 18 03/12/24 08:01 BP 133/95 03/12/24 08:01 Pulse Ox 99 03/12/24 08:01 FiO2 Intake & Output 03/11/24 03/12/24 03/12/24 18:59 06:59 18:59 Intake Total 0.29 Balance 0.29 Weight 72.575 kg Intake: Intake, IV Titration 0.29 Amount Heparin Sod,Pork in 0.45% 0.29 NaCl 25,000 unit In 0.45 % NaCl 1 250ml.bag @ 12 UNITS/KG/HR 8.709 mls/hr IV .Q24H [facility] Rx#: [id number] - Labs CBC & Chem 7: 03/13/24 06:19 03/13/24 06:19 Labs: Abnormal Lab Results - Last 24 Hours (Table) 03/11/24 03/11/24 03/11/24 Range/Units 18:11 18:11 18:11 WBC 13.0 H (3.8-10.6) k/uL Neutrophils # 11.7 H (1.3-7.7) k/uL APTT 176.9 H* (22.0-30.0) sec Sodium 136 L (137-145) mmol/L Chloride 112 H (98-107) mmol/L Carbon Dioxide 18 L (22-30) mmol/L Glucose 114 H (74-99) mg/dL Troponin I (0.000-0.034) ng/mL 03/11/24 03/11/24 03/11/24 Range/Units 18:11 19:56 21:06 WBC (3.8-10.6) k/uL Neutrophils # (1.3-7.7) k/uL APTT 32.3 H (22.0-30.0) sec Sodium (137-145) mmol/L Chloride (98-107) mmol/L Carbon Dioxide (22-30) mmol/L Glucose (74-99) mg/dL Troponin I 2.450 H* 3.210 H* (0.000-0.034) ng/mL 03/11/24 Range/Units 23:39 WBC (3.8-10.6) k/uL Neutrophils # (1.3-7.7) k/uL APTT (22.0-30.0) sec Sodium (137-145) mmol/L Chloride (98-107) mmol/L Carbon Dioxide (22-30) mmol/L Glucose (74-99) mg/dL Troponin I 3.350 H* (0.000-0.034) ng/mL
[2024-03-12] MEDS: SODIUM CHLORIDE 0.9% 1,000 ML in EMPTY BAG 1 BAG IV SCH ×2 (17:02)
[2024-03-13 04:56] VITALS: RESP 16
[2024-03-13 06:46] LABS: HCT 42.5 % (39.0-53.0); HGB 13.6 gm/dL (13.0-17.5); MCH 31.2 pg (25.0-35.0); MCV 97.6 fL (80.0-100.0); Mean Platelet Volume 7.9; Platelet Count 227 k/uL (150-450); RBC 4.35 m/uL (4.30-5.90); RDW 13.4 % (11.5-15.5); WBC 8.2 k/uL (3.8-10.6)
[2024-03-13 07:13] LABS: African American GFR (CKD) >90 (>60 ml/min/1.73 sqM); Anion Gap 3 mmol/L; Blood Urea Nitrogen 11 mg/dL (9-20); Calcium 8.7 mg/dL (8.4-10.2); Carbon Dioxide 20 mmol/L (22-30); Chloride 111 mmol/L (98-107); Glucose 104 mg/dL (74-99); Magnesium 1.7 mg/dL (1.6-2.3); Non-African American GFR(CKD) >90 (>60 ml/min/1.73 sqM); Potassium 3.8 mmol/L (3.5-5.1); Sodium 134 mmol/L (137-145)
[2024-03-13] MEDS ORDERED: ALBUTEROL NEBULIZED 2.5 MG/3 ML INHALATION PRN (08:01)
[2024-03-13] MEDS: MAGNESIUM SULFATE-D5W PMX 1 GM in DEXTROSE/WATER 1 100ML.BAG IVPB ONE (09:18)
[2024-03-13] MEDS: FOLIC ACID 1 MG TAB PO SCH (09:19)
[2024-03-13] MEDS: ARIPiprazole 10 MG TAB PO SCH (09:19)
[2024-03-13] MEDS: TIOTROPIUM 2.5 MCG INHALER INHALATION SCH (09:44)
--- NOTE | 2024-03-13 11:44 | P.PN ---
Subjective Progress Note Date: 03/13/24 Hospital course: Patient is a 58-year-old male with a past medical history of CAD with stent and COPD with continued nicotine dependence. He was transferred to our facility overnight on 03/11/2024 from [facility] for NSTEMI. Patient initially presented to their facility with squeezing central chest pain. Patient was given aspirin and workup there revealed elevated troponin documented at 1.56. Patient was started on heparin infusion for treatment of NSTEMI and transferred to our emergency department. Vital signs upon arrival to our facility show b lood pressure 107/71, heart rate 71, respiratory rate 18, temp 97.7 F, and SpO2 of 97% on room air. EKG upon arrival showing sinus bradycardia at [address] elevation in leads II, III, and aVF and T wave inversion in aVL. ER physician discussed EKG findings with on-call meat process worker. Heparin infusion was continued and patient was given Plavix and sublingual nitro resulting in resolution of chest pain/squeezing sensation. Repeat EKG was completed again showing sinus bradycardia with no noted ST elevation and T wave inversion in aVL. Loading Manager was again updated by ED physician on repeat labs and resolution of chest pain and new EKG findings after administration of medication recommending continuation of monitoring. Repeat labs at her facility were also completed. CBC showing leukocytosis with WBC count of 13.0. BMP showing sodium 136, chloride 112, bicarb 18, and anion gap of 6. Troponin 2.450. Patient admitted under our services with consultation to cardiology. Troponins trended resulting at 2.450, 3.210, and 3.350. Patient was evaluated by cardiology and was taken for left heart catheterization with bilateral coronary angiography. Patient was found to have 30% stenosis of LAD, 99% stenosis of proximal diagonal and 50% stenosis of mid RCA. Patient underwent successful stent placement of proximal diagonal. He was started on Plavix. Physical exam: Patient seen and fully evaluated at bedside this morning. Patient appears to be doing well, he denies having any complaints or pain at this time. Cardiac cath access site right radial, no signs of bleeding or hematoma formation no surrounding redness or bruising. Patient denies having any numbness/tingling/weakness in right hand or any further complaints of chest pain since completion of cardiac cath. Vital signs reviewed and stable. General: Nontoxic, no distress and appears stated age. Derm: Skin warm and dry, normal coloration for ethnicity. Head: Atraumatic, normocephalic and symmetric. Eyes: EOMs intact, no lid lag, and anicteric sclera Mouth: no lip lesions, mucus membranes moist Cardiovascular: regular rate and rhythm with normal S1S2, no murmur, positive posterior tibial pulses bilaterally, and cap refill < 2 seconds. Lungs: Respirations even, regular, and unlabored on room air. Lungs CTA bilaterally, no rhonchi, no rales, no wheezing, and no accessory muscle usage. Abdominal: soft, nontender to palpation, no guarding, no appreciable organomegaly Ext: ROM intact. No gross muscle atrophy, no edema, no contractures Neuro: Speech clear, face symmetrical and CN II-XII grossly intact with no noted focal neuro deficits Psych: Alert and oriented to person, place, time, and situation. Appropriate and pleasant affect. Assessment and Plan of Care: NSTEMI status post stenting of proximal diagonal History of CAD with previous stenting COPD, not in acute exacerbation Nicotine dependence -Cardiology evaluated and took patient for cardiac cath on 03/12/2024 resulting in successful stent placement of proximal diagonal. -Continue dual antiplatelet therapy with aspirin 81 mg daily and Plavix 75 mg daily. -Telemetry monitoring -Continue atorvastatin 40 mg daily, -Lipid profile was unremarkable. -Echocardiogram ordered and awaiting completion. -Patient was counseled on smoking cessation and offered a nicotine patch but declined at this time. -Continue Spiriva, Singulair, and as needed Ventolin inhaler for shortness of breath and/or wheezing. BPH Continue Flomax 0.4 mg daily. Data and imaging reviewed: Labs completed and reviewed. CBC unremarkable. BMP showing mild hyponatremia with sodium of 134, chloride 111, bicarb 20 and anion gap of 3. Renal function unremarkable. Blood glucose 104. Magnesium slightly low at 1.7 and replaced with mag sulfate 1 g IVPB. Vital signs reviewed and stable. Blood pressure 151/77, heart rate 56, respiratory rate 16, temp 98.0 F, and SpO2 of 97% on room air. CODE STATUS: Full code DVT prophylaxis: Heparin infusion Anticipated discharge date: Likely within the next 24 hours, awaiting completion of echocardiogram and clearance from cardiology. Anticipated discharge place: Home Patient was seen independently by Nurse Pracitioner. This document was prepared using Dragon dictation software. Please allow for errors in vault attendant, while rare they do occur. I reviewed the documentation as provided by the KIM above, who is the original author of this note. I agree with the documented assessment and plan, with the following changes: none Objective - Vital Signs Vital signs: Vital Signs Temp 98.0 F 03/13/24 04:00 Pulse 56 L 03/13/24 04:00 Resp 16 03/13/24 04:00 BP 151/77 03/13/24 04:00 Pulse Ox 97 03/13/24 04:00 FiO2 Intake & Output 03/12/24 03/13/24 03/13/24 18:59 06:59 18:59 Intake Total 303.202 Balance 303.202 Weight 72.575 kg 66.8 kg Intake: IV 200 Intake, IV Titration 103.202 Amount Heparin Sod,Pork in 0.45% 103.202 NaCl 25,000 unit In 0.45 % NaCl 1 250ml.bag @ 12 UNITS/KG/HR 8.709 mls/hr IV .Q24H [facility] Rx#: [id number] Other: # Voids 2 4 - Labs CBC & Chem 7: 03/13/24 06:19 03/13/24 06:19 Labs: Abnormal Lab Results - Last 24 Hours (Table) 03/12/24 03/13/24 Range/Units 08:11 06:19 APTT 33.1 H (22.0-30.0) sec Sodium 134 L (137-145) mmol/L Chloride 111 H (98-107) mmol/L Carbon Dioxide 20 L (22-30) mmol/L Glucose 104 H (74-99) mg/dL
[2024-03-13 11:56] VITALS: TEMP 98.1
[2024-03-13] MEDS: DOXYCYCLINE 100 MG CAP PO SCH (13:09)
[2024-03-13] MEDS: predniSONE 10 MG TAB PO SCH (13:09)
[2024-03-13] MEDS: BACLOFEN 10 MG TAB PO SCH (13:10)
--- NOTE | 2024-03-13 13:20 | P.PN ---
Subjective HISTORY OF PRESENT ILLNESS: This is a 58-year-old male with past medical history of coronary artery disease with previous stents placed in 2013 in [place]. Patient was transferred from [facility] for suspected non-ST elevated myocardial infarction. Patient has had chest pain ongoing for the past 3 weeks in the substernal area, [facility]. Troponin at [facility] was 1.56. He denies fever, chills. No shortness of breath. He has had one episode with nausea. Patient received NTG SL but at that time very inimal pain and not sure if this helped. He is a smoker of 1 pack/day. In 2013, patient had CO poisoning and found to have abnormal EKG and had stress test and then cath with stents. He did not experience chest pain at the time of his previous stents. Patient has been started on a heparin drip, aspirin, Plavix and is seen today in the emergency center waiting for bed on the cardiac stepdown unit. EKG sinus rhythm with abnormal ST or possible early repolarization WBC 13, hemoglobin 14.1. Sodium 136, potassium 4.4, chloride 112, CO2 18, BUN 12 and creatinine 0.81. Troponins 2.45, 3.21, 3.35. Home cardiac medications: none 03/13/2024 Patient is status postcardiac catheterization with Dr. Saunders revealing 30% LAD stenosis, 99% proximal diagonal 1 stenosis, and mid RCA 50% stenosis. Patient underwent PCI of the proximal diagonal 1. Patient was also found to have mildly elevated LVEDP. Patient examined today at the bedside. Patient denies chest pain or pressure. He denies shortness of breath. Vital signs are stable. PHYSICAL EXAM: VITAL SIGNS: Reviewed. GENERAL: Well-developed in no acute distress. NECK: Supple. No JVD or thyromegaly LUNGS: Respirations even and unlabored. Lungs essentially clear to auscultation bilaterally. HEART: Regular rate and rhythm. S1 and S2 heard. EXTREMITIES: Normal range of motion. No clubbing or cyanosis. Peripheral pulses intact. No lower extremity edema ASSESSMENT: Non-ST elevated myocardial infarction Status post stenting of proximal diagonal 1 History of coronary artery disease with previous stents, details unknown Tobacco use and dependence PLAN: 2D echo has been ordered. Await results. Continue dual antiplatelet therapy with aspirin and Plavix for 12 months No beta-blockers secondary to bradycardia Dr. Eason spoke with patient this morning regarding statin therapy. Patient states he is now agreeable. Start Crestor 10mg every other day per Dr. Eason. Goal LDL less than 70 Smoking cessation recommended. Patient declining nicotine patch. Patient to be referred to [place] quit line upon discharge Patient may be discharged home this afternoon from a cardiac standpoint Patient to follow-up postdischarge in the office with Dr. Saunders Nurse practitioner note has been reviewed by physician. Signing provider agrees with the documented findings, assessment, and plan of care documented by COMPUTER SERVICE TECHNICIAN as a scribe. Objective - Vital Signs Vital signs: Vital Signs Temp 98.0 F 03/13/24 04:00 Pulse 56 L 03/13/24 04:00 Resp 16 03/13/24 04:00 BP 151/77 03/13/24 04:00 Pulse Ox 97 03/13/24 04:00 FiO2 Intake & Output 03/12/24 03/13/24 03/13/24 18:59 06:59 18:59 Intake Total 303.202 Balance 303.202 Weight 72.575 kg 66.8 kg Intake: IV 200 Intake, IV Titration 103.202 Amount Heparin Sod,Pork in 0.45% 103.202 NaCl 25,000 unit In 0.45 % NaCl 1 250ml.bag @ 12 UNITS/KG/HR 8.709 mls/hr IV .Q24H MAHAMED Rx#: [id number] Other: # Voids 2 4 - Labs CBC & Chem 7: 03/13/24 06:19 03/13/24 06:19 Labs: Abnormal Lab Results - Last 24 Hours (Table) 03/13/24 Range/Units 06:19 Sodium 134 L (137-145) mmol/L Chloride 111 H (98-107) mmol/L Carbon Dioxide 20 L (22-30) mmol/L Glucose 104 H (74-99) mg/dL
[2024-03-13 15:04] VITALS: BMI 21.1
--- NOTE | 2024-03-13 17:05 | P.DS ---
Providers Date of admission: 03/11/24 20:15 Expected date of discharge: 03/13/24 Attending physician: Akilah Hare MD Consults: 03/11/24 20:15 Consult Physician Urgent Consulting Provider: Yayo Saunders Consult Reason/Comments: NSTEMI Do you want consulting provider notified?: Already Contacted 03/12/24 11:47 Consult Physician Routine Consulting Provider: [facility] Consult Reason/Comments: Post Interventional Patient Do you want consulting provider notified?: Already Contacted Primary care physician: [facility] Hospital Course: Discharge Diagnosis: NSTEMI status post stenting of proximal diagonal History of CAD with previous stenting COPD, not in acute exacerbation Nicotine dependence BPH Continue Flomax 0.4 mg daily. Hospital Course: Patient is a 58-year-old male with a past medical history of CAD with stent and COPD with continued nicotine dependence. He was transferred to our facility overnight on 03/11/2024 from [facility] for NSTEMI. Patient initially presented to their facility with squeezing central chest pain. Patient was given aspirin and workup there revealed elevated troponin documented at 1.56. Patient was started on heparin infusion for treatment of NSTEMI and transferred to our emergency department. Vital signs upon arrival to our facility show blood pressure 107/71, heart rate 71, respiratory rate 18, temp 97.7 F, and SpO2 of 97% on room air. EKG upon arrival showing sinus bradycardia at [address] elevation in leads II, III, and aVF and T wave inversion in aVL. ER physician discussed EKG findings with on-call supervisor shipping room. Heparin infusion was continued and patient was given Plavix and sublingual nitro resulting in resolution of chest pain/squeezing sensation. Repeat EKG was completed again showing sinus bradycardia with no noted ST elevation and T wave inversion in aVL. Clerk Analyst was again updated by ED physician on repeat labs and resolution of chest pain and new EKG findings after administration of medication recommending continuation of monitoring. Repeat labs at her facility were also completed. CBC showing leukocytosis with WBC count of 13.0. BMP showing sodium 136, chloride 112, bicarb 18, and anion gap of 6. Troponin 2.450. Patient admitted under our services with consultation to cardiology. Troponins trended resulting at 2.450, 3.210, and 3.350. Patient was evaluated by cardiology and was taken for left heart catheterization with bilateral coronary angiography. Patient was found to have 30% stenosis of LAD, 99% stenosis of proximal diagonal and 50% stenosis of mid RCA. Patient underwent successful stent placement of proximal diagonal. He was started on Plavix. Patient is medically stable at this time and has been cleared from cardiac perspective for discharge. Echocard iogram results remain pending and per direction of cardiology team, patient being discharged prior to these results. Patient to follow-up outpatient in office for echocardiogram results. Patient also provided with local PCP and strongly encouraged calling to establish care with primary care doctor. Physical exam: Vital signs reviewed and stable. General: Nontoxic, no distress and appears stated age. Derm: Skin warm and dry, normal coloration for ethnicity. Head: Atraumatic, normocephalic and symmetric. Eyes: EOMs intact, no lid lag, and anicteric sclera Mouth: no lip lesions, mucus membranes moist Cardiovascular: regular rate and rhythm with normal S1S2, no murmur, positive posterior tibial pulses bilaterally, and cap refill < 2 seconds. Lungs: Respirations even, regular, and unlabored on room air. Lungs CTA bilaterally, no rhonchi, no rales, no wheezing, and no accessory muscle usage. Abdominal: soft, nontender to palpation, no guarding, no appreciable organomegaly Ext: ROM intact. No gross muscle atrophy, no edema, no contractures Neuro: Speech clear, face symmetrical and CN II-XII grossly intact with no noted focal neuro deficits Psych: Alert and oriented to person, place, time, and situation. Appropriate and pleasant affect. A total of 33 minutes of time were spent preparing this complex discharge summary. Pt was discharged on 03/13/2024 at 5:01 PM. Patient was seen independently by Nurse Practitioner. This document was prepared using [employer] dictation software. Please allow for errors in tea tree farmer while rare they do occur. I reviewed the documentation as provided by the KIM above, who is the original author of this note. I agree with the documented assessment and plan, with the following changes: none Patient Condition at Discharge: Stable Plan - Discharge Summary Discharge Rx Participant: No New Discharge Prescriptions: New Aspirin 81 mg PO DAILY #90 tab Rosuvastatin [Crestor] 10 mg PO Q48H #90 tablet Nitroglycerin Sl Tabs [Nitrostat] 0.4 mg SUBLINGUAL Q5M PRN #100 tab PRN Reason: Chest Pain Clopidogrel [Plavix] 75 mg PO DAILY #90 tab Pantoprazole [Protonix] 40 mg PO AC-BRKFST 30 Days #30 tab Continue Montelukast [Singulair] 10 mg PO DAILY Escitalopram [Lexapro] 20 mg PO DAILY Albuterol Sulfate [Ventolin HFA] 2 puff INHALATION RT-Q4H PRN PRN Reason: Shortness Of Breath Folic Acid 1 mg PO DAILY Cetirizine HCl [Zyrtec] 10 mg PO DAILY Baclofen 10 mg PO TID ALPRAZolam [Xanax] 1 mg PO TID PRN PRN Reason: Anxiety ARIPiprazole [Abilify] 10 mg PO DAILY Tiotropium [place] [Spiriva Handihaler] 1 puff INHALATION RT-DAILY Tamsulosin [Flomax] 0.4 mg PO DAILY predniSONE See Taper PO DIRECTED Doxycycline Hyclate 100 mg PO BID Discharge Medication List ALPRAZolam [Xanax] 1 mg PO TID PRN 03/11/24 [History] ARIPiprazole [Abilify] 10 mg PO DAILY 03/11/24 [History] Albuterol Sulfate [Ventolin HFA] 2 puff INHALATION RT-Q4H PRN 03/11/24 [History] Baclofen 10 mg PO TID 03/11/24 [History] Cetirizine HCl [Zyrtec] 10 mg PO DAILY 03/11/24 [History] Doxycycline Hyclate 100 mg PO BID 03/11/24 [History] Escitalopram [Lexapro] 20 mg PO DAILY 03/11/24 [History] Folic Acid 1 mg PO DAILY 03/11/24 [History] Montelukast [Singulair] 10 mg PO DAILY 03/11/24 [History] Tamsulosin [Flomax] 0.4 mg PO DAILY 03/11/24 [History] Tiotropium [place] [Spiriva Handihaler] 1 puff INHALATION RT-DAILY 03/11/24 [History] predniSONE See Taper PO DIRECTED 03/11/24 [History] Aspirin 81 mg PO DAILY #90 tab 03/13/24 [Rx] Clopidogrel [Plavix] 75 mg PO DAILY #90 tab 03/13/24 [Rx] Nitroglycerin Sl Tabs [Nitrostat] 0.4 mg SUBLINGUAL Q5M PRN #100 tab 03/13/24 [Rx] Pantoprazole [Protonix] 40 mg PO AC-BRKFST 30 Days #30 tab 03/13/24 [Rx] Rosuvastatin [Crestor] 10 mg PO Q48H #90 tablet 03/13/24 [Rx] Follow up Appointment(s)/Referral(s): Yayo Saunders DO [STAFF PHYSICIAN] - 1 Week Dane Aayla III, MD [STAFF PHYSICIAN] - 1 Week (Please call and schedule appointment to establish care with PCP) Patient Instructions/Handouts: *[facility] - After Heart Catheterization - Dip Stand Loader Instructions, Coronary Intravascular Stent Placement (DC) Activity/Diet/Wound Care/Special Instructions: Activity: As tolerated. Take breaks as needed. Diet: Heart healthy and carb consistent diet. Avoid salts, or foods with hidden salts such as canned or boxed foods and frozen dinners. Extra salt makes your heart work harder and traps the fluid in your body for longer. Special Instructions: Take all of your medications as directed and remember to keep all of your doctor's appointments and follow-up as needed. Per supervisor shipping room team, you are being discharged prior to the result of your echocardiogram. You will need to follow-up in their office in 1 week to discuss these results. Thank you for allowing us to participate in your care, it was truly a pleasure having you for our patient!!! Discharge Disposition: HOME SELF-CARE
[2024-03-13 18:38] VITALS: BP 144/86; PULSE 60
[2024-03-14] MEDS ORDERED: LORATADINE 10 MG TAB PO SCH (09:00)
--- NOTE | 2024-03-14 10:54 | CA ---
Transthoracic Echo Report Name: Juan Ramon Sy Age: 58 Gender: M : 1965 Exam Date: 03/13/2024 11:37 Exam Location: [facility] Ht (in): 70 Wt (lb): 160 Ordering Physician: Candi Iglesias Attending/Referring Phys: [id number], Kelsie Ammunition Storekeeper Genia Polanco, PAULA Procedure CPT: Indications: LVF Cardiac Hx: Technical Quality: Good Contrast 1: Total Dose (mL): Contrast 2: Total Dose (mL): MEASUREMENTS (Male / Female) Normal Values 2D ECHO LV Diastolic Diameter PLAX 5.0 cm 4.2 - 5.9 / 3.9 - 5.3 cm LV Systolic Diameter PLAX 2.9 cm IVS Diastolic Thickness 1.0 cm 0.6 - 1.0 / 0.6 - 0.9 cm LVPW Diastolic Thickness 0.9 cm 0.6 - 1.0 / 0.6 - 0.9 cm LV Relative Wall Thickness 0.4 RV Internal Dim ED PLAX 1.8 cm LA Systolic Diameter LX 3.6 cm 3.0 - 4.0 / 2.7 - 3.8 cm LV Diastolic Volume MOD BP 88.4 cm??? 67 - 155 / 56 - 104 cm??? LV Systolic Volume MOD BP 28.6 cm??? 22 - 58 / 19 - 49 cm??? LV Ejection Fraction MOD BP 67.7 % >= 55 % LV Cardiac Index MOD BP 1769.3 cm???/min???m??? LV Diastolic Volume MOD 4C 97.1 cm??? LV Systolic Volume MOD 4C 29.2 cm??? LV Ejection Fraction MOD 4C 70.0 % LV Cardiac Index MOD 4C 2007.2 cm???/min???m??? LV Diastolic Length 4C 8.2 cm LV Systolic Length 4C 6.2 cm LV Diastolic Volume MOD 2C 74.2 cm??? LV Systolic Volume MOD 2C 28.2 cm??? LV Ejection Fraction MOD 2C 62.0 % LV Cardiac Index MOD 2C 1358.4 cm???/min???m??? LV Diastolic Length 2C 7.5 cm LV Systolic Length 2C 6.2 cm M-MODE Aortic Root Diameter MM 3.6 cm LA Systolic Diameter MM 3.1 cm LA Ao Ratio MM 0.8 DOPPLER AV Peak Velocity 145.7 cm/s AV Peak Gradient 8.5 mmHg Mitral E Point Velocity 74.5 cm/s Mitral A Point Velocity 72.9 cm/s Mitral E to A Ratio 1.0 MV Deceleration Time 277.0 ms MV E' Velocity 10.4 cm/s Mitral E to MV E' Ratio 7.2 TR Peak Velocity 225.0 cm/s TR Peak Gradient 20.3 mmHg Right Ventricular Systolic Press 25.3 mmHg FINDINGS Left Ventricle Left ventricular ejection fraction is estimated at 55-60 %. Normal Left ventricular size, wall thickness, systolic function with no obvious regional wall motion abnormalities. Normal Left ventricular diastolic filling pattern. Right Ventricle Normal right ventricular size and function. Right ventricular systolic pressure within normal limits. Right Atrium Normal right atrial size. Left Atrium Normal left atrial size. Mitral Valve Structurally normal mitral valve. Trace to mild mitral regurgitation. Aortic Valve Trileaflet aortic valve. No aortic valve stenosis or regurgitation. Tricuspid Valve Structurally normal tricuspid valve. Trace to mild tricuspid regurgitation. Pulmonic Valve Structurally normal pulmonic valve. Trace pulmonic regurgitation. Pericardium No pericardial or pleural effusion. Aorta Aorta at upper limits of normal. CONCLUSIONS 1. Normal left ventricular size and systolic function 2. Trace to mild mitral and tricuspid regurgitation with no evidence of pulmonary hypertension Previewed by: Dr. Arielle Pena MD (Electronically Signed) Final Date: 14 Mar 2024 10:53
== END 2024-03-13 19:27 | disposition home or self-care (01) | DRG 174 ==
LOC: EC 17:27 → 3SCARD 20:15
PROVIDERS: ADMIT Internal Medicine; ATTEND Internal Medicine
PROC: 027034Z Dilation of Coronary Artery, One Artery with Drug-eluting Intraluminal Device, Percutaneous Approach (ICD-10-PCS; principal; 2024-03-12 10:34)
PROC: 4A023N7 Measurement of Cardiac Sampling and Pressure, Left Heart, Percutaneous Approach (ICD-10-PCS; 2024-03-12 10:34)
PROC: B2111ZZ Fluoroscopy of Multiple Coronary Arteries using Low Osmolar Contrast (ICD-10-PCS; 2024-03-12 10:34)
DX: I21.4 Non-ST elevation (NSTEMI) myocardial infarction (principal); D72.829 Elevated white blood cell count, unspecified; F17.210 Nicotine dependence, cigarettes, uncomplicated; F41.9 Anxiety disorder, unspecified; I25.10 Atherosclerotic heart disease of native coronary artery without angina pectoris; J44.9 Chronic obstructive pulmonary disease, unspecified; I08.1 Rheumatic disorders of both mitral and tricuspid valves; N40.0 Benign prostatic hyperplasia without lower urinary tract symptoms; Z79.02 Long term (current) use of antithrombotics/antiplatelets; Z79.82 Long term (current) use of aspirin; Z79.899 Other long term (current) drug therapy; Z95.5 Presence of coronary angioplasty implant and graft
CPT/HCPCS: 36415; 76937; 80048; 80053; 80061; 83735; 84484; 85025; 85027; 85610; 85730; 93005; 93306; 93458; 94640; 96361; 96374; 99291